=== PATIENT | female | born 1990 | race Caucasian/White ===

== ENCOUNTER 2018-12-21 17:19 | Emergency (ER) | payer OTHER, MEDICAID, SELFPAY ==
[2018-12-21 17:26] VITALS: BP 129/82; PULSE 90; RESP 16; TEMP 35.9; O2SAT 99; BMI 36.2
--- NOTE | 2018-12-21 18:48 | ED.WOUNDLAC ---
HPI - Wound/Laceration <Kavita Lobo PA-C - Last Filed: 12/21/18 22:30> General Chief Complaint: Wound/Laceration Stated Complaint: index finger laceration from touch up edger,L hand Time Seen by Provider: 12/21/18 18:29 Source: patient Mode of arrival: ambulatory Limitations: no limitations History of Present Illness HPI narrative: This 28-year-old female right-handed female cut her left ring finger on an touch up edger a few hours ago. She denies weakness or paresthesia, states she just tries to avoid moving it because it bleeds more. She denies any other injury. Last tetanus vaccine was in 2012. She denies possibility of . Related Data Allergies Allergy/AdvReac Type Severity Reaction Status Date / Time No Known Drug Allergies Allergy Verified 12/21/18 17:29 Review of Systems <Kavita Lobo PA-C - Last Filed: 12/21/18 22:30> Review of Systems ROS Unobtainable: All systems reviewed & are unremarkable except as noted in HPI and below PFSH <Kavita Lobo PA-C - Last Filed: 12/21/18 22:30> Medical History (Updated 12/21/18 @ 19:28 by Kavita Lobo PA-C) Depression (Chronic) Fatigue (Chronic) Hypothyroidism (Chronic) Surgical History (Updated 12/21/18 @ 19:09 by Kavita oLbo PA-C) No history of previous surgery (Chronic) Social History Smoking Status: Never smoker Social History Smoking Status: Never smoker Exam <Kavita Lobo PA-C - Last Filed: 12/21/18 22:30> Narrative Exam Narrative: GENERAL APPEARANCE: Patient sitting comfortably, in no distress. LUNGS: Clear to auscultation bilaterally. HEART: Rate and rhythm regular without murmur, normal S1 and S2, no S3 or S4. DERMATOLOGIC: Left ring finger there is an 8 mm curvilinear laceration on the lateral border that approaches but does not cross the fingernail. 2-3 mm maximal depth, no gap MUSCULOSKELETAL full range of motion of the left ring finger, strength intact in all clark against resisted NEUROVASCULAR: Left ring finger warm and pink with brisk cap refill, sensation grossly intact Initial Vital Signs Initial Vital Signs: Vital Signs Temperature 96.7 F L 12/21/18 17:26 Pulse Rate 90 12/21/18 17:26 Respiratory Rate 16 12/21/18 17:26 Blood Pressure 129/82 12/21/18 17:26 Pulse Oximetry 99 12/21/18 17:26 <Mando Cheung DO - Last Filed: 12/22/18 03:43> Initial Vital Signs Initial Vital Signs: Vital Signs Temperature 96.7 F L 12/21/18 17:26 Pulse Rate 90 12/21/18 17:26 Respiratory Rate 16 12/21/18 17:26 Blood Pressure 129/82 12/21/18 17:26 Pulse Oximetry 99 12/21/18 17:26 Procedures <Kavita Lobo PA-C - Last Filed: 12/21/18 22:30> [facility] [place] Procedure Name of Procedure: Left ring finger cleaned with soap and water, closed with Dermabond and Steri-Strips Course <Kavita Lobo PA-C - Last Filed: 12/21/18 22:30> Orders Ordered: Discontinued Medications Diphtheria/Tetanus/Acell Pertussis (Adacel) 0.5 ml IM .ONCE ONE Stop: 12/21/18 19:28 Last Admin: 12/21/18 19:27 Dose: 0.5 ml Tetanus/Diphtheria Toxoids (Td) 0.5 ml IM .ONCE ONE Stop: 12/21/18 19:00 Last Admin: 12/21/18 19:27 Dose: Not Given Vital Signs - 8 hr 12/21/18 20:11 Temperature 98.1 F Pulse Rate 84 Respiratory Rate 16 Blood Pressure 137/84 Pulse Oximetry 96 <Mando Cheung DO - Last Filed: 12/22/18 03:43> Orders Ordered: Discontinued Medications Diphtheria/Tetanus/Acell Pertussis (Adacel) 0.5 ml IM .ONCE ONE Stop: 12/21/18 19:28 Last Admin: 12/21/18 19:27 Dose: 0.5 ml Tetanus/Diphtheria Toxoids (Td) 0.5 ml IM .ONCE ONE Stop: 12/21/18 19:00 Last Admin: 12/21/18 19:27 Dose: Not Given Vital Signs - 8 hr 12/21/18 20:11 Temperature 98.1 F Pulse Rate 84 Respiratory Rate 16 Blood Pressure 137/84 Pulse Oximetry 96 Discharge Plan Departure Patient Disposition: Home Clinical Impression: Laceration Discharge Date/Time: 12/21/18 20:10 Interventions: ED Discharge Assessment Last Done: 12/21/18 20:11 Instructions: DI for Laceration Repair With Dermabond Activity Restrictions/Additional Instructions: Please return here or go to urgent care as we discussed if you have problems with the wound or signs of infection such as redness, drainage, or fever. Otherwise please keep this clean and dry and covered if you are working/using the hand. The tape strips and glue will come off on their own. We have updated your tetanus vaccine today. Referrals: Gisela Almeida [Other] <Mando Cheung DO - Last Filed: 12/22/18 03:43> [facility] ED Attending Juan José Attestation: I was immediately available in the department for consultation. Documentation has been reviewed. I agree with assessment and plan.
--- NOTE | 2018-12-21 19:11 | ED_ITS ---
HPI - Wound/Laceration <Kavita Lobo PA-C - Last Filed: 12/21/18 22:30> General Chief Complaint: Wound/Laceration Stated Complaint: index finger laceration from edge stripper,L hand Time Seen by Provider: 12/21/18 18:29 Source: patient Mode of arrival: ambulatory Limitations: no limitations History of Present Illness HPI narrative: This 28-year-old female right-handed female cut her left ring finger on an edge stripper a few hours ago. She denies weakness or paresthesia, states she just tries to avoid moving it because it bleeds more. She denies any other injury. Last tetanus vaccine was in 2012. She denies possibility of . Related Data Allergies Allergy/AdvReac Type Severity Reaction Status Date / Time No Known Drug Allergies Allergy Verified 12/21/18 17:29 Review of Systems <Kavita Lobo PA-C - Last Filed: 12/21/18 22:30> Review of Systems ROS Unobtainable: All systems reviewed & are unremarkable except as noted in HPI and below PFSH <Kavita Lobo PA-C - Last Filed: 12/21/18 22:30> Medical History (Updated 12/21/18 @ 19:28 by Kavita Lobo PA-C) Depression (Chronic) Fatigue (Chronic) Hypothyroidism (Chronic) Surgical History (Updated 12/21/18 @ 19:09 by Kavita Lobo PA-C) No history of previous surgery (Chronic) Social History Smoking Status: Never smoker Social History Smoking Status: Never smoker Exam <Kavita Lobo PA-C - Last Filed: 12/21/18 22:30> Narrative Exam Narrative: GENERAL APPEARANCE: Patient sitting comfortably, in no distress. LUNGS: Clear to auscultation bilaterally. HEART: Rate and rhythm regular without murmur, normal S1 and S2, no S3 or S4. DERMATOLOGIC: Left ring finger there is an 8 mm curvilinear laceration on the lateral border that approaches but does not cross the fingernail. 2-3 mm maximal depth, no gap MUSCULOSKELETAL full range of motion of the left ring finger, strength intact in all clark against resisted NEUROVASCULAR: Left ring finger warm and pink with brisk cap refill, sensation grossly intact Initial Vital Signs Initial Vital Signs: Vital Signs Temperature 96.7 F L 12/21/18 17:26 Pulse Rate 90 12/21/18 17:26 Respiratory Rate 16 12/21/18 17:26 Blood Pressure 129/82 12/21/18 17:26 Pulse Oximetry 99 12/21/18 17:26 <Mando Cheung DO - Last Filed: 12/22/18 03:43> Initial Vital Signs Initial Vital Signs: Vital Signs Temperature 96.7 F L 12/21/18 17:26 Pulse Rate 90 12/21/18 17:26 Respiratory Rate 16 12/21/18 17:26 Blood Pressure 129/82 12/21/18 17:26 Pulse Oximetry 99 12/21/18 17:26 Procedures <Kavita Lobo PA-C - Last Filed: 12/21/18 22:30> [facility] [place] Procedure Name of Procedure: Left ring finger cleaned with soap and water, closed with Dermabond and Steri-Strips Course <Kavita Lobo PA-C - Last Filed: 12/21/18 22:30> Orders Ordered: Discontinued Medications Diphtheria/Tetanus/Acell Pertussis (Adacel) 0.5 ml IM .ONCE ONE Stop: 12/21/18 19:28 Last Admin: 12/21/18 19:27 Dose: 0.5 ml Tetanus/Diphtheria Toxoids (Td) 0.5 ml IM .ONCE ONE Stop: 12/21/18 19:00 Last Admin: 12/21/18 19:27 Dose: Not Given Vital Signs - 8 hr 12/21/18 20:11 Temperature 98.1 F Pulse Rate 84 Respiratory Rate 16 Blood Pressure 137/84 Pulse Oximetry 96 <Mando Cheung DO - Last Filed: 12/22/18 03:43> Orders Ordered: Discontinued Medications Diphtheria/Tetanus/Acell Pertussis (Adacel) 0.5 ml IM .ONCE ONE Stop: 12/21/18 19:28 Last Admin: 12/21/18 19:27 Dose: 0.5 ml Tetanus/Diphtheria Toxoids (Td) 0.5 ml IM .ONCE ONE Stop: 12/21/18 19:00 Last Admin: 12/21/18 19:27 Dose: Not Given Vital Signs - 8 hr 12/21/18 20:11 Temperature 98.1 F Pulse Rate 84 Respiratory Rate 16 Blood Pressure 137/84 Pulse Oximetry 96 Discharge Plan Departure Patient Disposition: Home Clinical Impression: Laceration Discharge Date/Time: 12/21/18 20:10 Interventions: ED Discharge Assessment Last Done: 12/21/18 20:11 Instructions: DI for Laceration Repair With Dermabond Activity Restrictions/Additional Instructions: Please return here or go to urgent care as we discussed if you have problems with the wound or signs of infection such as redness, drainage, or fever. Otherwise please keep this clean and dry and covered if you are working/using the hand. The tape strips and glue will come off on their own. We have updated your tetanus vaccine today. Referrals: Gisela Almeida [Other] <Mando Cheung DO - Last Filed: 12/22/18 03:43> [facility] ED Attending Juan José Attestation: I was immediately available in the department for consultation. Documentation has been reviewed. I agree with assessment and plan.
[2018-12-21] MEDS: TET,DIPH,PERTUSS(ACELL),VAC/PF 0.5 ML SYRINGE IM (19:27)
[2018-12-21 20:11] VITALS: BP 137/84; PULSE 84; RESP 16; TEMP 36.7; O2SAT 96
== END 2018-12-21 20:10 | disposition home or self-care (01) ==
PROVIDERS: Emergency Provider Internal Medicine
DX: S61.211A Laceration without foreign body of left index finger without damage to nail, initial encounter (principal); W26.8XXA Contact with other sharp object(s), not elsewhere classified, initial encounter; Z23 Encounter for immunization
CPT/HCPCS: 90471; 96372; 99283; 90715

== ENCOUNTER 2024-07-24 06:31 | Emergency (ER) | payer OTHER, MEDICAID, SELFPAY ==
[2024-07-24 06:39] VITALS: PULSE 152; O2SAT 98
[2024-07-24 06:40] VITALS: BP 143/81; PULSE 122; RESP 18; TEMP 37; O2SAT 98; BMI 27.4
--- NOTE | 2024-07-24 07:07 | ED.PSYCH ---
HPI - Psych General Chief Complaint: Psychiatric Symptoms Stated Complaint: not sleeping at all/diabetic type 1 Time Seen by Provider: 07/24/24 06:35 Source: patient Mode of arrival: Ambulatory History of Present Illness HPI Narrative: 34-year-old female with history of diabetes for which she uses insulin pump, history of anxiety for which she has taken lorazepam in the past, endorses ongoing social stressors with her mother with whom she lives in the same household, mother apparently will not leave her alone, constantly bothering her, causing significant stress, inability for the patient to be able to sleep, increasing irritability, no SI or HI symptoms currently. Some as I symptoms apparently at some point in the past. She believes that she might need inpatient treatment for her anxiety, we would like to talk to older adult social work specialist Related Data Previous Rx's Medication Instructions Recorded nitrofurantoin 100 mg PO Q12H 5 days #10 caps 07/24/24 monohydrate/macrocrystals 100 mg capsule (Macrobid) Allergies Allergy/AdvReac Type Severity Reaction Status Date / Time No Known Drug Allergies Allergy Verified 12/21/18 17:29 Review of Systems Review of Systems Narrative: See HPI Patient History Medical History (Updated 07/24/24 @ 12:21 by Ayaz Keller MD) Hypothyroidism Depression Fatigue Surgical History (Updated 12/21/18 @ 19:09 by Kavita Lobo PA-C) No history of previous surgery Social History Smoking Status: Never smoker Smoking Status: Never smoker Substance Use Type: marijuana Exam Narrative Exam Narrative: GENERAL: Well-developed patient, in mild distress. HEAD: Atraumatic. Normocephalic. EYES: Pupils equal round and reactive. Extraocular motions intact. No scleral icterus. No injection or drainage. ENT: Nose without bleeding, purulent drainage. Throat without erythema, tonsillar hypertrophy or exudate. Airway patent. NECK: Trachea midline. Non tender CARDIOVASCULAR: Regular rate and rhythm without murmurs, gallops, or rubs. RESPIRATORY: Clear to auscultation. Breath sounds equal bilaterally. No wheezes, rales, or rhonchi. GASTROINTESTINAL: Abdomen soft, non-tender, nondistended. EXTREMITIES: No edema or joint tenderness. BACK: Nontender without deformity or crepitance. No flank tenderness. NEURO: Alert cooperative, clear speech. Motor functions grossly nonfocal Psychiatric: Measured careful considered answers to questions, good eye contact, good insight, somewhat flat affect, no pressors speech, no flight of ideas. SKIN: No rash or erythema of visible areas Initial Vital Signs Initial Vital Signs: Vital Signs Pulse Rate 152 H 07/24/24 06:39 Pulse Oximetry 98 07/24/24 06:39 Course Orders Ordered: Discontinued Medications Nitrofurantoin Macrocrystals (Nitrofurantoin Er 100 Mg Capsule) 100 mg PO NOW ONE Stop: 07/24/24 12:22 Last Admin: 07/24/24 13:18 Dose: 100 mg Documented By: JENNIFER Vital Signs Vital signs: Vital Signs - 8 hr 07/24/24 06:39 07/24/24 06:40 07/24/24 09:38 Temperature 98.6 F Pulse Rate 152 H 122 H 105 H Respiratory Rate 18 18 Blood Pressure 143/81 H 130/88 Pulse Oximetry 98 98 98 Oxygen Delivery Method Room Air Room Air MDM - Psych Lab Data Attestation: I reviewed the patient's lab results. Lab results narrative: Adult cell count 8400, hemoglobin 14.2, platelets adequate. Basic metabolic panel unremarkable. Liver functions normal. TSH normal. Urine drug screen positive for marijuana otherwise negative. Ethanol negative. Acetaminophen and salicylate levels negative. COVID flu RSV negative. Urinalysis suspicious for infection. Urine culture pending. 07/24/24 07:50 07/24/24 07:50 Labs: Lab Results 07/24/24 07/24/24 07/24/24 Range/Units 07:41 07:50 08:05 WBC 8.4 (4.5-11.0) X10^3/uL RBC 4.82 (4.0-5.2) X10^6/uL Hgb 14.2 (12.0-16.0) g/dL Hct 42.2 (36-46) % MCV 87.5 (80-100) fL MCH 29.4 (26-34) PG MCHC 33.6 (30-36) % RDW 13.9 (11.6-14.8) % Plt Count 358 (150-400) X10^3/uL Neut % (Auto) 41.6 L (50-75) % Lymph % (Auto) 47.5 H (25-40) % Davidson % (Auto) 9.1 (3-14) % Eos % (Auto) 1.2 L (2-4) % Baso % (Auto) 0.6 (0-2) % Neut # (Auto) 3500 (8349-2218) /uL Lymph # (Auto) 4000 (1251-4789) /uL Davidson # (Auto) 800 (0-900) /uL Eos # (Auto) 100 (0-450) /uL Baso # (Auto) 100 (0-100) /uL Sodium 139 (137-145) mmol/L Potassium 3.8 (3.4-5.1) mmol/L Chloride 105 (98-107) mmol/L Carbon Dioxide 25 (22-32) mmol/L BUN 15 (7-17) mg/dL Creatinine 0.78 (0.52-1.04) mg/dL Estimated GFR > 60 (>60) mL/min BUN/Creatinine Ratio 19.2 (6-22) Glucose 84 (70-100) mg/dL Calcium 9.4 (8.4-10.2) mg/dL Total Bilirubin 0.6 (0.2-1.3) mg/dL AST 30 (14-36) IU/L ALT 17 (<35) IU/L Alkaline Phosphatase 63 (38-126) U/L Total Protein 8.1 (6.3-8.2) g/dL Albumin 4.5 (3.5-5.0) g/dL Globulin 3.6 (1.7-4.1) g/dL Albumin/Globulin Ratio 1.3 (1.0-2.8) TSH 2.50 (0.47-4.68) uIU/mL Free T4 1.03 (0.78-2.19) ng/dL Urine Color Yellow Urine Appearance Clear Urine pH 5.5 (4.5-8.0) Ur Specific [place] 1.015 (1.000-1.035) Urine Protein Negative (Negative) Urine Glucose (UA) Negative (Negative) g/dL Urine Ketones Trace H (NEGATIVE) Urine Occult Blood Negative (Negative) Urine Nitrate Negative (Negative) Urine Bilirubin Negative (NEGATIVE) Urine Urobilinogen 0.2 (0.2) E.U./dL Ur Leukocyte Esterase 1+ H (NEGATIVE) Urine RBC 0-1/hpf (0-5/HPF) Urine WBC 5-10/hpf H (0-5/HPF) Ur Squamous Epith Cells 1-5 /hpf (0-5/HPF) Urine Bacteria Moderate (10-30) H (None) Ur Culture Indicated? Specimen cultured Vol Urine Centrifuged 10ml (spun) Salicylates < 1.0 (<20) mg/dL U Opiates 300ng/mL cut Negative (Negative) Ur Oxycodone Screen Negative (Negative) Urine Methadone Screen Negative (Negative) Acetaminophen < 10 (10-30) ug/mL Ur Barbiturates Screen Negative (Negative) U Tricyclic Antidepress Negative (Negative) Ur Phencyclidine Scrn Negative (Negative) Ur Amphetamines Screen Negative (Negative) U Methamphetamines Scrn Negative (Negative) Ur MDMA Scrn (Ecstasy) Negative (Negative) U Benzodiazepines Scrn Negative (Negative) Urine Cocaine Screen Negative (Negative) U Marijuana (THC) Screen Positive H (Negative) Urine Specific [place] (Normal) Ethyl Alcohol < 10 ( - 10) mg/dL Ur Creatinine (Normal) SARS-CoV-2 (PCR) Negative (Negative) Influenza A (RT-PCR) Flu a negative (NEGATIVE) Influenza B (RT-PCR) Flu b negative (NEGATIVE) RSV (PCR) Negative (Negative) 07/24/24 Range/Units 08:05 WBC (4.5-11.0) X10^3/uL RBC (4.0-5.2) X10^6/uL Hgb (12.0-16.0) g/dL Hct (36-46) % MCV (80-100) fL MCH (26-34) PG MCHC (30-36) % RDW (11.6-14.8) % Plt Count (150-400) X10^3/uL Neut % (Auto) (50-75) % Lymph % (Auto) (25-40) % Davidson % (Auto) (3-14) % Eos % (Auto) (2-4) % Baso % (Auto) (0-2) % Neut # (Auto) (4943-3953) /uL Lymph # (Auto) (6548-8620) /uL Davidson # (Auto) (0-900) /uL Eos # (Auto) (0-450) /uL Baso # (Auto) (0-100) /uL Sodium (137-145) mmol/L Potassium (3.4-5.1) mmol/L Chloride (98-107) mmol/L Carbon Dioxide (22-32) mmol/L BUN (7-17) mg/dL Creatinine (0.52-1.04) mg/dL Estimated GFR (>60) mL/min BUN/Creatinine Ratio (6-22) Glucose (70-100) mg/dL Calcium (8.4-10.2) mg/dL Total Bilirubin (0.2-1.3) mg/dL AST (14-36) IU/L ALT (<35) IU/L Alkaline Phosphatase (38-126) U/L Total Protein (6.3-8.2) g/dL Albumin (3.5-5.0) g/dL Globulin (1.7-4.1) g/dL Albumin/Globulin Ratio (1.0-2.8) TSH (0.47-4.68) uIU/mL Free T4 (0.78-2.19) ng/dL Urine Color Urine Appearance Urine pH Normal (4.5-8.0) Ur Specific [place] (1.000-1.035) Urine Protein (Negative) Urine Glucose (UA) (Negative) g/dL Urine Ketones (NEGATIVE) Urine Occult Blood (Negative) Urine Nitrate (Negative) Urine Bilirubin (NEGATIVE) Urine Urobilinogen (0.2) E.U./dL Ur Leukocyte Esterase (NEGATIVE) Urine RBC (0-5/HPF) Urine WBC (0-5/HPF) Ur Squamous Epith Cells (0-5/HPF) Urine Bacteria (None) Ur Culture Indicated? Vol Urine Centrifuged Salicylates (<20) mg/dL U Opiates 300ng/mL cut (Negative) Ur Oxycodone Screen (Negative) Urine Methadone Screen (Negative) Acetaminophen (10-30) ug/mL Ur Barbiturates Screen (Negative) U Tricyclic Antidepress (Negative) Ur Phencyclidine Scrn (Negative) Ur Amphetamines Screen (Negative) U Methamphetamines Scrn (Negative) Ur MDMA Scrn (Ecstasy) (Negative) U Benzodiazepines Scrn (Negative) Urine Cocaine Screen (Negative) U Marijuana (THC) Screen (Negative) Urine Specific [place] Normal (Normal) Ethyl Alcohol ( - 10) mg/dL Ur Creatinine Normal (Normal) SARS-CoV-2 (PCR) (Negative) Influenza A (RT-PCR) (NEGATIVE) Influenza B (RT-PCR) (NEGATIVE) RSV (PCR) (Negative) Point of Care Testing Test Results Negative Glucose POC 184 Urine Dip Bedside Urine Glucose Negative Bedside Urine Bilirubin - Negative Bedside Urine Ketone - Negative Urine Specific [place] 1.015 Bedside Urine Occult Blood - Negative Bedside Urine pH 6.0 Bedside Urine Protein - Negative Bedside Urine Urobilinogen - Negative Bedside Urine Nitrite - Negative Bedside Urine Leukocytes +/- 15 Esterase ECG Data Attestation: I personally reviewed and interpreted this ECG as follows: Interpretation: Normal sinus rhythm with rate of 95, no obvious ST segment elevation or depression changes. VT 112, QRS 90, QTC 437. MDM Narrative Medical decision making narrative: 34-year-old female feels quite anxious and upset at behavior of her mother with whom she lives, mother constantly bugging her, history of diabetes, difficulty sleeping cause of her anxiety and frequent reported unwanted interactions with her mother. No SI/HI symptoms current but some remote SI in the past. Patient considering inpatient treatment options. Screening labs sent. Screening labs unremarkable serum studies, COVID negative, UDS positive for cannabis, negative ethanol salicylate acetaminophen. Urine HCG negative. Urinalysis with bacteria inflammatory cells, urine culture pending. No fever, no upper tract symptoms. Oral dose Macrobid 1st dose, we will need further course oral on discharge 1230, older adult social work specialist evaluation noted, bed placement in progress Seen by older adult social work specialist, elects outpatient treatment, follow up closely with PCP and with outpatient mental health services for now, home with friends. Further Rx Macrobid sent to her pharmacy. SC home stable/improved Discharge Plan Departure Patient Disposition: Home Clinical Impression: Anxiety, Urinary tract infection Instructions: DI for Urinary Tract Infection (UTI), DI for Anxiety -- Adult Activity Restrictions/Additional Instructions: Symptoms of anxiety, initial request for possible inpatient treatment, screening labs sent, urinalysis suspected, 1st dose antibiotic given, further antibiotics sent to your pharmacy. 911 emergency services dispatcher consulted, ultimately decision to have outpatient treatment for now. Follow up with your PCP Dr Almeida at [facility] and [facility]. Also follow up on with your mental health therapist Tonya Herbert. Drink plenty of fluids. Take antibiotics as prescribed. Return to this/nearest emergency department for any change worsening symptoms or any concerns prior Prescriptions: New nitrofurantoin monohyd/m-cryst [Macrobid] 100 mg capsule 100 mg PO Q12H 5 Days Qty: 10 0RF Rx Instructions: must administer with a meal/food Stand Alone Forms: Patient Portal/API/Survey
--- NOTE | 2024-07-24 07:55 | EKG_ITS ---
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
[2024-07-24 08:03] LABS: Add Manual Diff / Slide Review NO; Basophils Absolute Auto 100 /uL (0-100); Basophils Percent Auto 0.6 % (0-2); Eosinophils Absolute Auto 100 /uL (0-450); Eosinophils Percent Auto 1.2 % (2-4); Hematocrit 42.2 % (36-46); Hemoglobin 14.2 g/dL (12.0-16.0); Lymphocytes Absolute Auto 4000 /uL (1100-4500); Lymphocytes Percent Auto 47.5 % (25-40); Mean Corpuscular HGB Conc 33.6 % (30-36); Mean Corpuscular Hemoglobin 29.4 PG (26-34); Mean Corpuscular Volume 87.5 fL (80-100); Monocytes Absolute Auto 800 /uL (0-900); Monocytes Percent Auto 9.1 % (3-14); Neutrophils Absolute Auto 3500 /uL (1500-7000); Neutrophils Percent Auto 41.6 % (50-75); Platelet Count 358 X10^3/uL (150-400); Red Blood Cell Count 4.82 X10^6/uL (4.0-5.2); Red Cell Distribution Width 13.9 % (11.6-14.8); White Blood Cell Count 8.4 X10^3/uL (4.5-11.0)
[2024-07-24 08:14] LABS: Acetaminophen < 10 ug/mL (10-30); Alanine Aminotransferase 17 IU/L (<35); Albumin 4.5 g/dL (3.5-5.0); Albumin Globulin Ratio 1.3 (1.0-2.8); Alkaline Phosphatase 63 U/L (38-126); Aspartate Aminotransferase 30 IU/L (14-36); BUN Creatinine Ratio 19.2 (6-22); Bilirubin Total 0.6 mg/dL (0.2-1.3); Blood Urea Nitrogen 15 mg/dL (7-17); Calcium 9.4 mg/dL (8.4-10.2); Carbon Dioxide 25 mmol/L (22-32); Chloride 105 mmol/L (98-107); Estimated Glomerular Filt Rate > 60 mL/min (>60); Ethanol (ETOH) < 10 mg/dL; Globulin 3.6 g/dL (1.7-4.1); Glucose 84 mg/dL (70-100); HEMOLYSIS 30 (0-50); Potassium 3.8 mmol/L (3.4-5.1); Salicylate < 1.0 mg/dL (<20); Sodium 139 mmol/L (137-145); Total Protein 8.1 g/dL (6.3-8.2)
--- NOTE | 2024-07-24 08:22 | PC.NURSE ---
Pt endorses prior history of SI with attempts. When asked what pt had attempted in the past she states Doing things that people tell me I cannot do and single-handedly ripping off a gate from its hinges. Pt endorses history of cutting while in high school. She has had intrusive thoughts about what would happen if I'm driving on the highway and allow myself to drift out of a tushar, or do something else I'm not supposed to. I dont want to act on the thoughts. F*ck no.
[2024-07-24 08:24] LABS: Appearance Urine UA CLEAR; Bilirubin Urine UA NEGATIVE (NEGATIVE); Color Urine UA YELLOW; Glucose Urine UA NEGATIVE (Negative); Ketones Urine UA TRACE (NEGATIVE); Leukocyte Esterase Urine UA 1+ (NEGATIVE); Nitrite Urine UA NEGATIVE (Negative); Occult Blood Urine UA NEGATIVE (Negative); Protein Urine UA NEGATIVE (Negative); Specific Gravity Urine UA 1.015 (1.000-1.035); Urobilinogen Urine UA 0.2 E.U./dL (0.2)
[2024-07-24 08:29] LABS: Ur Creatinine Normal (Normal); Ur Specific Gravity Normal (Normal); Urine Amphetamines Negative (Negative); Urine Barbiturates Negative (Negative); Urine Benzodiazepines Negative (Negative); Urine Cocaine Negative (Negative); Urine MDMA Negative (Negative); Urine Methadone Negative (Negative); Urine Methamphetamines Negative (Negative); Urine Opiates Negative (Negative); Urine Oxycodone Negative (Negative); Urine Phencyclidine Negative (Negative); Urine THC Positive (Negative); Urine Tricyclic Antidepressant Negative (Negative); Urine pH Normal (Normal); pH Urine UA 5.5 (4.5-8.0)
[2024-07-24 08:33] LABS: Bacteria Urine Moderate (10-30); RBC Urine 0-1/HPF (0-5/HPF); Squamous Epithelial Cell Urine 1-5 /HPF (0-5/HPF); Urine Volume 10mL (spun); WBC Urine 5-10/HPF (0-5/HPF)
[2024-07-24 08:34] LABS: Culture Indicated Urine Specimen Cultured
[2024-07-24 08:41] LABS: Influenza A - CEPHEID Flu A NEGATIVE (NEGATIVE); Influenza B - CEPHEID Flu B NEGATIVE (NEGATIVE); Respiratory Syncytial Virus Negative (Negative)
[2024-07-24 08:42] LABS: COVID-19 CEPHEID 4-PLEX PCR Negative (Negative)
[2024-07-24 08:43] LABS: Free T4, Direct Thyroxine 1.03 ng/dL (0.78-2.19)
[2024-07-24 09:38] VITALS: BP 130/88; PULSE 105; RESP 18; O2SAT 98
--- NOTE | 2024-07-24 13:14 | CM.SWNOTE ---
Addendum entered by VENKATESH Mercado 07/24/24 14:44: ED PILE FABRIC KNITTER deployed ELIZABETH-7 and PHQ9, pt scored 21 and 22 respectfully; indicating severe anxiety and depression. Original Note: ED PILE FABRIC KNITTER Assessment Note: PILE FABRIC KNITTER - Chuck Tender Assessment PILE FABRIC KNITTER/Chuck Tender Assessment Time Spent with Patient Start date 07/24/24 Visit Start Time 11:45 End date 07/24/24 Visit End Time 12:25 Total time Care Management spent on 40 minutes patient visit-in minutes Mental Health Screening Include Onset, Duration, Intensity Presenting Problem Patient presented to the ED today due to no sleep, I can' t remember the last time I slept and feelings of anxiety. Patient noted with ED RN that she has a hx of suicide attempts and has passive thoughts of hurting self, recently. Patient is a type 1 diabetic and has been navigating taking her medical issues with her psychiatric issues. Precipitating Event(s) Patient states she wants to get away from her mom and has been having increased arguments with her mother. Patient explains lifelong invalidation from family members which have attributed to her mood. Patient Strengths Patient is communicative and is self-aware, has been collaborating with her PCP and MH Provider. Current Behavioral Health Provider(s) Patient has been seeing Tonya Montague, Provider, Ph. # [facility] (ph#[phone]) for many years. Psych. Hx Mental Health and Chemical Patient's PCP (Vanessa Almeida at [facility]) prescribes her psych meds: buproprion 300mg, duloxetine 60mg, adderral 10mg PRN, and lorazepam .5mg PRN). Patient has a hx of anxiety and depression. Family Hx of Behavioral Abuse Patient reports dysfunctional family dynamics which have resulted in many arguments and miscommunication which attribute to pt's mood. Psychiatric Hospitalizations (date(s)/ None reported. location) Psychosocial information & Support Patient is a 34yo female, Systems resident of [place], lives with her mother. Patient has her Aunt, Grandmother, and friend supporting her at bedside. School/Work Patient does not currently work. Legal Concerns Legal Matters - Outstanding Issues None reported. Mental Status Orientation (Person/Place/Time) AOx3 Stated Mood Exhausted Affect (Congruent with Mood?) Congruent with mood Thought Content - Specify/Describe None identified or reported Obsessions, Delusions, Hallucinations during assessment. Thought Processes (Zcixiqy-Rlckwkab-Bzvn Circumstantial, tangential Ninuuzvy-Pdoaewxp-Ocmkcsonel- Jfgoxybixrqebe-Xuugyza-Tfobzqqyqmnt- Thought Blocking) Speech (Jysomt-Ropx-Mbtkfoh-Rapid-Soft- Normal, excessive, compulsive Loud-Pressured) Motor (Gkxumu-Mcdmblwll-Bvjs-Other) Normal Insight (Dfze-Uotm-Agmv/Limited) Good Judgement (Qyfc-Ikzp-Dwaj/Limited) Good Impulse Control (Adequate-Impaired) Adequate Memory (Zopriztpk-Nvhjcl-Etmquh, Intact Impaired-Intact) Concentration (Intact-Impaired) Intact Attention (Intact-Impaired) Intact Behavior (Appropriate-Inappropriate) Appropriate Additional Comment Patient is calm, cooperative and communicative during assessment. Risk Assessment Suicidal Ideation (Plan) No Homicidal Ideation (Plan) No Comment Patient denies Suicidal ideation with this PILE FABRIC KNITTER, states she does not have current thoughts to hurt herself or others. Patient is able to contract for safety with this PILE FABRIC KNITTER. Patient stated hx of attempts and passive ideation with no plan. Intervention Intervention Reviewed chart and discussed pt with ED staff. It is reported in ED Provider notes that pt is open to inpatient treatment. ED PILE FABRIC KNITTER entered room, introduced self and role. Present in the room is pt's aunt, grandmother and friend. ED PILE FABRIC KNITTER inquired if pt would like to add them to pt's chart as contacts (none currently), pt agreed. Pt reports having increased stressors with her living situation and she has missed some doses of medications this month. Patient states she does not believe her medications have been effective and would like to go somewhere to reevaluate and stabilize medication dosages. Patient agreeable to initial bed search with careful consideration of her Omnipod 5 (insulin delivery (AID) system that uses a Continuous Glucose Monitor (CGM)). ED PILE FABRIC KNITTER called [facility], it is reported they have no beds available. ED PILE FABRIC KNITTER called [facility], it is reported that they have beds available and they would be able to review pt if pt agreeable to taking her Omnipod out for traditional DM1 treatment while inpatient. ED PILE FABRIC KNITTER called [facility], it is reported that they have beds available and they would be able to review pt if pt agreeable to taking her Omnipod out for traditional DM1 treatment while inpatient. ED PILE FABRIC KNITTER reviewed the above with pt, it is reported that pt does not wish to continue with inpatient bed search because she is not agreeable to discharging her Omnipod in the meantime. ED PILE FABRIC KNITTER discussed safety planning with pt, pt to find temporary placement to have space from her mother for a few days while referrals are sent for housing assistance and case management. ED PILE FABRIC KNITTER to send referrals to [facility] Case Management team, [facility] team for in-home caregiving and housing assistance. ED PILE FABRIC KNITTER to provide printed resources for housing, crisis contacts. ED PILE FABRIC KNITTER left voice message for pt's MH counselor, advocating for sooner follow up with pt due to recent stressors. Plan RA Plan Pt contracted for safety to follow up with PCP, [facility] Case Management referral, and MH provider. ED PILE FABRIC KNITTER following for any other social needs at this time. CORA Edward
[2024-07-24] MEDS: NITROFURANTOIN ER 100 MG CAPSULE PO (13:18)
[2024-07-24 14:38] VITALS: BP 146/76; PULSE 95; RESP 16; O2SAT 100
== END 2024-07-24 14:42 | disposition home or self-care (01) ==
PROVIDERS: Emergency Provider Emergency Medicine; PCP Family Medicine
DX: F41.9 Anxiety disorder, unspecified (principal); N39.0 Urinary tract infection, site not specified; E10.9 Type 1 diabetes mellitus without complications; Z96.41 Presence of insulin pump (external) (internal)
CPT/HCPCS: 87635; 87400 ×2; 87420; 0241U; 36415; 80053; 80305; 80320; 80329; 81001; 81003; 81025; 82962; 84439; 84443; 85025; 87086; 93005; 99284; G0480